=== PATIENT | male | born 1960 | race Caucasian/White ===

== ENCOUNTER 2016-12-15 02:13 | Inpatient (IN) | payer BC ==
[2016-12-15] VITALS (16 sets, daily range): BP systolic 102–173; BP diastolic 69–107; PULSE 83–112; TEMP 36.7–37; O2SAT 94–99; Ht 180.3 cm; Wt 102.8 kg
[~2016-12-15] VITALS: Ht 180.3 cm; Wt 102.8 kg
[~2016-12-15 02:13] MED LIST: ALBUAER INH; AMPH30TA2 PO; GABA-113 PO; LISI20TA3 PO; MULTTAB58 PO
[2016-12-15] MEDS ORDERED: MoRPHine SULFATE 10 MG/ML CARP/VIAL IV STA (02:34)
[2016-12-15] MEDS ORDERED: ONDANSETRON INJ 2 MG/ML 2 ML VIAL IV STA (02:34)
[2016-12-15] MEDS ORDERED: ALUMINUM/MAGNESIUM SUSP 30 ML UDC ONE (02:40)
[2016-12-15] MEDS ORDERED: LIDOCAINE HCL 2% VISC SOLN 20 ML UDC ONE (02:40)
[2016-12-15] MEDS ORDERED: SODIUM CHLORIDE 0.9% 1000ML 1,000 ML IV ONE ×2 (02:45→04:45)
[2016-12-15] MEDS ORDERED: GI COCKTAIL PO ONE (02:45)
[2016-12-15 02:47] LABS: BASO % 0.3 %; BASO ABS # 0.04 K/uL (0-0.2); COMPLETE YES; EOS % 1.9 %; HEMATOCRIT 44.1 % (42-52); IG% 0.5 %; LYMPH % 10.2 %; LYMPH ABS # 1.31 K/uL (1.2-3.4); MEAN CELL VOLUME 85.8 fL (80-100); MEAN CORPUSCULAR HGB CONC 34.9 g/dl (32-36); MEAN PLATELET VOLUME 8.8 fL (7.4-10.4); MONO % 7.1 %; PLATELET COUNT 263 K/uL (130-400); RED BLOOD COUNT 5.14 M/uL (4.7-6.1); WHITE BLOOD COUNT 12.89 K/uL (4.8-10.8)
[2016-12-15 02:56] LABS: ISTAT CREATININE 1.1 mg/dl (0.6-1.3); ISTAT HEMOGLOBIN 15.6 g/dl (14.0-18.0); ISTAT IONIZED CALCIUM 1.14 mmol/l (1.12-1.32)
[2016-12-15 03:07] LABS: INR 0.9 (0.9-1.1); PROTHROMBIN TIME (PATIENT) 9.6 SECONDS (9.0-12.0)
[2016-12-15 03:17] LABS: BUN/CREATININE RATIO 21.2 (10-20); CALCIUM 9.4 mg/dl (8.5-10.1); CREATININE 1.1 mg/dl (0.60-1.40); MAGNESIUM 2.2 mg/dl (1.8-2.4); POTASSIUM 4.5 mmol/L (3.5-5.1)
[2016-12-15] MEDS ORDERED: HYDROmorphone INJ 1 MG/ML SYR IV STA ×2 (03:25→04:36)
[2016-12-15 03:30] LABS: ALB/GLOB RATIO 1.3 (0.9-2); THYROID STIMULATING HORMONE 2.63 uIu/ml (0.300-4.500)
[2016-12-15] MEDS ORDERED: CEFOXITIN 2000MG/60 ML D5W IV STA (04:29)
[2016-12-15] MEDS ORDERED: PANTOprazole INJ 40 MG in SYRINGE 0 ML IV ONE (04:30)
[2016-12-15] MEDS ORDERED: FENTANYL CITRATE INJ 50 MCG/1 ML 2 ML VIAL ONE ×3 (05:15→06:59)
[2016-12-15] MEDS ORDERED: MIDAZOLAM HCL 1 MG/ML 2ML VIAL ONE (05:15)
--- NOTE | 2016-12-15 05:18 | History and Physical ---
History & Physical Date Dec 15, 2016. Chief Complaint abdominal pain History of Present Illness The patient is a 56 year old male with complaints of severe abdominal pain which began at midnight. He came to ED for evaluation. He has had some vomiting but no vomiting. The pain is epigastric without radiation. He denies fever, chills or dysuria. A CT scan shows free air and presumably a perforated duodenal ulcer. He has never taken antacids. Past Medical/Surgical History Medical Problems: (1) Asthma (2) Bronchitis (3) Dislocation of shoulder, right, closed (4) HTN (hypertension) (5) Pneumonia Surgical Problems: (1) H/O removal of cyst Additional History Hepatic Disease: No Endocrine Disorder: No Kidney Disease: No Hypertension: Yes Heart Disease: No Bleeding Tendencies: No Infectious Diseases: No Allergies Coded Allergies: Iodine (Verified Allergy, Unknown, HIVES, 12/15/16) Penicillins (Verified Allergy, Unknown, RASH, 12/15/16) Codeine (Verified Adverse Reaction, Unknown, NAUSEA, 12/15/16) Uncoded Allergies: CONTRASTMEDIA (Allergy, Unknown, 05/10/09) OPIATEAGONISTS (Adverse Reaction, Unknown, NAUSEA, 05/10/09) Home Medications Scheduled Multiple Vitamin (Multivitamin), 1 TAB PO QAM Physical Examination Skin: warm/dry, no rash Eyes: normal inspection, EOMI, sclerae normal ENT: normal ENT inspection Head: normocephalic, atraumatic Neck: supple, no adenopathy, trachea midline Respiratory/Chest: lungs clear, normal breath sounds, no respiratory distress Cardiovascular: regular rate, rhythm, no murmur Abdomen / GI: normal bowel sounds, + pertinent finding (epigastric tenderness, guarding and rebound, no hernias) Back: normal inspection Extremities: normal inspection Genitourinary - Male: normal male genitalia Neurologic/Psych: no motor/sensory deficits, alert, normal reflexes, oriented x 3 Diagnosis Perforated viscus likely duodenal ulcer ASA Classification: ASA Class II Plan of Treatment -IV medoxin -IVF -to OR for exploration
[2016-12-15] MEDS ORDERED: PROMETHAZINE HCL INJ 12.5 MG in SODIUM CHLORIDE 0.9% 50ML 50 ML IV PRN (05:30)
[2016-12-15] MEDS ORDERED: MoRPHine SULFATE 2 MG/ML CARP IV PRN (05:30)
[2016-12-15] MEDS ORDERED: ONDANSETRON INJ 2 MG/ML 2 ML VIAL IV PRN (05:30)
[2016-12-15] MEDS ORDERED: ACETAMINOPHEN IV 100 ML IV PRN (05:30)
[2016-12-15] MEDS ORDERED: ATROPINE SULFATE 0.1 MG/ML 5ML SYR IV PRN (05:30)
[2016-12-15] MEDS ORDERED: LABETALOL HCL IV 5 MG/ML 20ML IV PRN (05:30)
--- NOTE | 2016-12-15 05:55 | EMERGENCY ROOM VISIT NOTE ---
History First contact with patient: 02:26 Chief Complaint: ABDOMINAL PAIN Stated Complaint: SEVERE INDIGESTION PAIN,NO RELIEF AT 2 HRS Nursing Triage Summary: c/o epigastric pain/burning starting around 0030 that woke pt from sleep. History of Present Illness The patient is a 56 year old male who presents to the Emergency Room with complaints of severe acute onset epigastric abdominal pain that he rates a 10/ 10. He describes it as a severe burning sensation seated just below his ribs. The pain is without radiation. He is nauseated without vomiting. The patient was doing well all day and was eating and drinking as normal. He does not have chest pain, chest tightness, shortness of breath, back pain, or lower abdominal pain. He does not have a history of pancreatitis or gallbladder disease. No No recent illness. Review of Systems More than 10 systems were reviewed and otherwise negative with the exception of history of present illness. Past Medical/Surgical History Medical Problems: (1) Asthma (2) Bronchitis (3) Dislocation of shoulder, right, closed (4) HTN (hypertension) (5) Pneumonia Surgical Problems: (1) H/O removal of cyst Family History Cancer Social History Smoking Status: Never Smoker Alcohol Use: none Marital Status: Housing Status: lives with family Occupation Status: employed Current/Historical Medications Scheduled Multiple Vitamin (Multivitamin), 1 TAB PO QAM Allergies Coded Allergies: Iodine (Verified Allergy, Unknown, HIVES, 12/15/16) Penicillins (Verified Allergy, Unknown, RASH, 12/15/16) Codeine (Verified Adverse Reaction, Unknown, NAUSEA, 12/15/16) Uncoded Allergies: CONTRASTMEDIA (Allergy, Unknown, 05/10/09) OPIATEAGONISTS (Adverse Reaction, Unknown, NAUSEA, 05/10/09) Physical Exam Vital Signs Date Time Temp Pulse Resp B/P (MAP) Pulse Ox O2 Delivery O2 Flow Rate FiO2 12/15/16 05:03 36.7 89 16 153/97 95 Room Air 12/15/16 03:38 88 24 159/108 100 Room Air 12/15/16 02:29 83 12/15/16 02:16 36.4 87 26 165/100 96 Room Air Pain Rating (0-10): 4.0 Physical Exam VITALS: Vitals are noted on the nurse's note and reviewed by myself. Vital signs stable. GENERAL: Well-developed, well-nourished, white male who appears in severe discomfort. He is holding his epigastric region with his hands. NECK: Supple without nuchal rigidity. No lymphadenopathy. No thyromegaly. Cervical spine is nontender. HEART: Regular rate and rhythm without murmurs gallops or rubs. LUNGS: Clear to auscultation bilaterally without wheezes, rales or rhonchi. No retractions or accessory muscle use. ABDOMEN: Positive normal bowel sounds x 4. Soft with exquisite tenderness in the epigastrium. No CVA tenderness. No lower abdominal tenderness. MUSCULOSKELETAL: No muscle atrophy, erythema, or edema noted. Full range of motion without joint tenderness in all extremities. Medical Decision & Procedures ER Provider Diagnostic Interpretation: Preliminary Findings Only See Final Report For Complete Findings CT ABDOMEN & PELVIS: Moderate amount of free air seen within the upper abdomen suggesting perforated viscous, likely duodenal ulcer (2-35). Liver, gallbladder, spleen, pancreas and adrenal glands are unremarkable. Kidneys, ureters and urinary bladder are unremarkable. Noninflamed colonic diverticulosis. Appendix is unremarkable. Fat-containing umbilical hernia. No acute osseous abnormality. Laboratory Results 12/15/16 02:35 Red Blood Count 5.14, Mean Corpuscular Volume 85.8, Mean Corpuscular Hemoglobin 30.0, Mean Corpuscular Hemoglobin Concent 34.9, Mean Platelet Volume 8.8, Neutrophils (%) (Auto) 80.0, Lymphocytes (%) (Auto) 10.2, Monocytes (%) (Auto) 7.1, Eosinophils (%) (Auto) 1.9, Basophils (%) (Auto) 0.3, Neutrophils # (Auto) 10.33, Lymphocytes # (Auto) 1.31, Monocytes # (Auto) 0.91, Eosinophils # (Auto) 0.24, Basophils # (Auto) 0.04 12/15/16 02:35 Test 12/15/16 02:35 12/15/16 02:41 12/15/16 02:43 White Blood Count 12.89 K/uL (4.8-10.8) Red Blood Count 5.14 M/uL (4.7-6.1) Hemoglobin 15.4 g/dL (14.0-18.0) Hematocrit 44.1 % (42-52) Mean Corpuscular Volume 85.8 fL (80-100) Mean Corpuscular Hemoglobin 30.0 pg (25-34) Mean Corpuscular Hemoglobin Concent 34.9 g/dl (32-36) Platelet Count 263 K/uL (130-400) Mean Platelet Volume 8.8 fL (7.4-10.4) Neutrophils (%) (Auto) 80.0 % Lymphocytes (%) (Auto) 10.2 % Monocytes (%) (Auto) 7.1 % Eosinophils (%) (Auto) 1.9 % Basophils (%) (Auto) 0.3 % Neutrophils # (Auto) 10.33 K/uL (1.4-6.5) Lymphocytes # (Auto) 1.31 K/uL (1.2-3.4) Monocytes # (Auto) 0.91 K/uL (0.11-0.59) Eosinophils # (Auto) 0.24 K/uL (0-0.5) Basophils # (Auto) 0.04 K/uL (0-0.2) RDW Standard Deviation 41.5 fL (36.4-46.3) RDW Coefficient of Variation 13.1 % (11.5-14.5) Immature Granulocyte % (Auto) 0.5 % Immature Granulocyte # (Auto) 0.06 K/uL (0.00-0.02) Prothrombin Time 9.6 SECONDS (9.0-12.0) Prothromb Time International Ratio 0.9 (0.9-1.1) Activated Partial Thromboplast Time 26.9 SECONDS (21.0-31.0) Partial Thromboplastin Ratio 1.0 Est Creatinine Clear Calc Drug Dose 90.4 ml/min Estimated GFR () 85.9 Estimated GFR (Non- 74.1 BUN/Creatinine Ratio 21.2 (10-20) Calcium Level 9.4 mg/dl (8.5-10.1) Magnesium Level 2.2 mg/dl (1.8-2.4) Total Bilirubin 0.3 mg/dl (0.2-1) Aspartate Amino Transf (AST/SGOT) 20 U/L (15-37) Alanine Aminotransferase (ALT/SGPT) 30 U/L (12-78) Alkaline Phosphatase 101 U/L (45-117) Total Creatine Kinase 103 U/L (39-308) Creatine Kinase MB 2.1 ng/ml (0.5-3.6) Creatine Kinase MB Ratio 2.0 (0-3.0) Total Protein 7.4 gm/dl (6.4-8.2) Albumin 4.2 gm/dl (3.4-5.0) Globulin 3.2 gm/dl (2.5-4.0) Albumin/Globulin Ratio 1.3 (0.9-2) Lipase 290 U/L (73-393) Thyroid Stimulating Hormone (TSH) 2.630 uIu/ml (0.300-4.500) Chemistry Specimen Hemolysis Bedside Troponin I < 0.030 ng/ml (0-0.045) Bedside Hemoglobin 15.6 g/dl (14.0-18.0) Bedside Hematocrit 46 % (42-52) Bedside Sodium 141 mEq/L (135-144) Bedside Potassium 4.2 mEq/L (3.3-5.0) Bedside Chloride 101 mEq/L (101-112) Bedside Total CO2 30 mEq/l (24-31) Anion Gap 15.0 mmol/L (16-25) Bedside Blood Urea Nitrogen 25 mg/dl (7-18) Bedside Creatinine 1.1 mg/dl (0.6-1.3) Bedside Glucose (other) 137 mg/dl (70-99) Bedside Ionized Calcium (Althea) 1.14 mmol/l (1.12-1.32) Medications Administered Medications (Trade) Dose Ordered Sig/Rod Route Start Time Stop Time Status Last Admin Dose Admin Morphine Sulfate (MoRPHine SULFATE INJ) 6 mg NOW STAT IV 12/15/16 02:34 12/15/16 02:37 DC 12/15/16 02:47 6 MG Sodium Chloride 1,000 ml @ 999 mls/hr Q1H1M ONCE IV 12/15/16 02:45 12/15/16 03:45 DC 12/15/16 02:45 999 MLS/HR Ondansetron HCl (Zofran Inj) 4 mg NOW STAT IV 12/15/16 02:34 12/15/16 02:37 DC 12/15/16 02:45 4 MG Al Hydroxide/Mg Hydroxide (Maalox Susp) 30 ml STK-MED ONCE .ROUTE 12/15/16 02:40 12/15/16 02:41 DC 12/15/16 02:43 30 ML Lidocaine HCl (Viscous Lidocaine 2% Soln) 20 ml STK-MED ONCE .ROUTE 12/15/16 02:40 12/15/16 02:41 DC 12/15/16 02:43 20 ML Hydromorphone HCl (Dilaudid Inj) 1 mg NOW STAT IV 12/15/16 03:25 12/15/16 03:26 DC 12/15/16 03:35 1 MG Pantoprazole Sodium 40 mg/ Syringe 10 ml @ 5 mls/min NOW ONCE IV 12/15/16 04:30 12/15/16 04:31 DC 12/15/16 04:43 5 MLS/MIN Cefoxitin Sodium (Mefoxin 2000mg/ 60 ml D5W) 2,000 mg NOW STAT IV 12/15/16 04:29 12/15/16 04:31 DC 12/15/16 04:42 2,000 MG Hydromorphone HCl (Dilaudid Inj) 1 mg NOW STAT IV 12/15/16 04:36 12/15/16 04:37 DC 12/15/16 04:55 1 MG Sodium Chloride 1,000 ml @ 999 mls/hr Q1H1M ONCE IV 12/15/16 04:45 12/15/16 05:45 DC 12/15/16 04:45 999 MLS/HR ED Course Physical exam and history were performed. Nursing notes, EMR, and Medication List were personally reviewed. Patient appears to have severe epigastric abdominal pain. IV access was established and labs were obtained. My initial concern for the patient was for possible dissection as he was with significant discomfort on presentation. Evidently the patient does have a contrast allergy, and I elected to perform a stat portable chest x-ray and abdomen and pelvis CT without contrast. The patient did require morphine and subsequent doses of Dilaudid to achieve any level of reasonable comfort. The patient's blood work is as above and was reviewed. He does have an elevated white blood cell count of around 13,000. He does not have a significant anemia or gross electrolyte imbalance. Lipase and transaminases were not diagnostic. The patient CT scan was very concerning on initial review by myself and my attending physician, Dr. Hutchins. The patient appears to have free air around the duodenum, and this was confirmed by [employer] reading. Clinically this does correlate with the patient's discomfort. The case was discussed with the on-call surgeon, Dr. Olivarez, who evaluated the patient here in the ER and will take him to the OR. The patient was given IV Protonix and Mefoxin. Please see Dr. Olivarez's dictation for further patient course, plan, and disposition. The chart was completed utilizing [employer] Speech Voice Recognition Software. Grammatical errors, random word insertions, pronoun errors, and incomplete sentences are an occasional consequence of this system due to software limitations, ambient noise, and hardware issues. Any formal questions or concerns about the content, text, or information contained within the body of this dictation should be directly addressed to the provider for clarification. . Medical Decision Differential diagnosis: Etiologies such as appendicitis, diverticulitis, PUD, biliary pathology, UTI, pancreatitis, obstruction, mesenteric ischemia, aortic pathology, infections, inflammatory bowel disease, renal colic, as well as others were entertained. Impression Primary Impression: Duodenal perforation Departure Information Referrals Erik Tracey III, M.D. (PCP) Patient Instructions My [facility]
--- NOTE | 2016-12-15 06:08 | EMERGENCY ROOM VISIT NOTE ---
ED Visit Note First contact with patient: 02:26 I have personally evaluated and examined this patient. I agree with assessment and plan of Rowdy Dior PA-C. Joselyn 56 yr old male arrives with several hours acute onset epigastric pain. Peritonitis on examination and CT with free air, highly suspicious for duodenal perforation. Pain controlled with IV narcotics, empiric abx and patient taken to OR emergently by Surgery.
[2016-12-15] MEDS ORDERED: CISATRACURIUM BESYLATE IV SOLN 2 MG/ML 10 ML VIAL ONE (06:24)
[2016-12-15] MEDS ORDERED: PROPOFOL IV EMULSION 10 MG/ML 20 ML VIAL IV ONE (06:24)
[2016-12-15] MEDS ORDERED: LIDOCAINE HCL 2% 2 ML VIAL (20MG/ML) ONE (06:24)
[2016-12-15] MEDS ORDERED: SUCCINYLCHOLINE 100MG/5ML SYR IV ONE (06:24)
[2016-12-15] MEDS ORDERED: EpHEDrine SULFATE INJ 50 MG/ML AMP ONE (06:25)
--- NOTE | 2016-12-15 06:44 | DIAGNOSTIC IMAGING REPORT ---
CHEST ONE VIEW PORTABLE CLINICAL HISTORY: Epigastric abd pain pain COMPARISON STUDY: No previous studies for comparison. FINDINGS: The bones soft tissues and hemidiaphragms are normal. The cardiomediastinal silhouette is normal. The lungs are clear. The pulmonary vasculature is normal. IMPRESSION: Negative chest. The above report was generated using voice recognition software. It may contain grammatical, syntax or spelling errors. Electronically signed by: Doug Massey M.D. 12/15/2016 6:43 AM Dictated Date/Time: 12/15/2016 6:41 AM
[2016-12-15] MEDS ORDERED: MoRPHine SULFATE 4 MG/ML 1 ML CARP\\VIAL IV PRN (06:45)
--- NOTE | 2016-12-15 06:48 | DIAGNOSTIC IMAGING REPORT ---
ABD/PELVIS NO IV OR ORAL CONT CT DOSE: 724.69 mGy.cm HISTORY: Pain Severe epigastric abd pain TECHNIQUE: Multiaxial CT images of the abdomen and pelvis were performed without contrast. A dose lowering technique was utilized adhering to the principles of ALARA. COMPARISON STUDY: None. FINDINGS: Lung bases are clear. Free intraperitoneal air. Distribution suggests a potential perforated viscus within the upper gastrointestinal tract and or duodenal sweep. Slight thickening of the right coronal fascia. Liver spleen and pancreas are uniform. Kidneys negative for calcification or hydronephrosis. Bowel pattern is nonobstructive. Evaluation of pelvis is chronic sigmoid diverticulosis. There is no evidence for acute diverticulitis. Bladder is midline. IMPRESSION: 1. Free intra-abdominal air. 2. This potentially represents a perforated viscus related to the duodenum or duodenal sweep/stomach. 3. Otherwise negative study. 4. Chronic sigmoid diverticulosis. The above report was generated using voice recognition software. It may contain grammatical, syntax or spelling errors. Electronically signed by: Doug Massey M.D. 12/15/2016 6:46 AM Dictated Date/Time: 12/15/2016 6:45 AM
[2016-12-15] MEDS ORDERED: DEXAMETHASONE SOD INJ 4 MG/ML VIAL ONE (07:02)
[2016-12-15] MEDS ORDERED: ONDANSETRON INJ 2 MG/ML 2 ML VIAL ONE (07:02)
--- NOTE | 2016-12-15 07:39 | [facility] Post Operative Brief Note ---
Immediate Operative Summary Operative Date Dec 15, 2016. Pre-Operative Diagnosis Free Air, Perforated Viscus, Duodenal Ulcer Post-Operative Diagnosis Free Air, Perforated Viscus, Duodenal perforated diverrticulum Procedure(s) Performed Exploratory Laparotomy with resection perforated duodenal diverticulum Surgeon Dr. Olivarez Public Affairs Officer Surgeon(s) none Estimated Blood Loss 75CC Findings anterior superior perforated duodenal diverticulum Specimens A: Duodenal Diverticulum Drains duodenal resection site Anesthesia GETA Complication(s) None Disposition Recovery Room / PACU
[2016-12-15] MEDS ORDERED: BACITRACIN 50000 UNIT VIAL ONE (07:46)
[2016-12-15] MEDS: HYDROmorphone INJ 2 MG/ML SYR/VIAL IV PRN ×8 (07:56→09:06)
--- NOTE | 2016-12-15 08:11 | OPERATIVE REPORT ---
DATE OF OPERATION: 12/15/2016 PREOPERATIVE DIAGNOSIS: Perforated viscus, likely duodenal ulcer. POSTOPERATIVE DIAGNOSIS: Perforated anterior superior duodenal diverticulum. PROCEDURE PERFORMED: Exploratory lap with resection and drainage of perforated duodenal diverticulum. SURGEON: Dr. Rigoberto Olivarez. ANIMAL HERDER: None. ANESTHESIA: General endotracheal. ESTIMATED BLOOD LOSS: 75 mL. DRAINS: Left near the repair site. COMPLICATIONS: None. SPECIMENS: Duodenal diverticulum sent to pathology. INDICATION FOR PROCEDURE: This is a 56-year-old male who came in last evening with severe epigastric abdominal pain, underwent a workup which CT scan showed free air and likely some sort of duodenal process causing his perforation. I talked to him in detail about this and recommended exploratory laparotomy. We will plan on doing this emergently. He understands the risks which were explained to him in detail. DESCRIPTION OF PROCEDURE: The patient was taken to the OR and underwent excellent general endotracheal anesthesia. His abdomen was prepped and draped in normal sterile fashion. A Wheat and NG tube were placed intraoperatively. An upper midline incision was made. Dissection was taken down to enter his peritoneal cavity. A Bookwalter retractor was obtained to obtain exposure. There appeared to be a duodenal diverticulum which had some sort of a process which had covered but you could see greenish drainage around it. The gastrocolic ligament was taken down to check the lesser sac and the posterior stomach which was normal and the anterior stomach was normal. The colon was checked with no abnormalities. He had some diverticular disease but no current diverticulitis. Once this was ensured, the duodenum was then Kocherized to mobilize the anterior superior duodenal diverticulum that had a small, about a cm base to it. Once this was dissected free with meticulous sharp and blunt dissection a JENNIFER stapler was used to transect the duodenum. You could see where the hole was in the anterior portion of the duodenum and on the duodenal diverticulum. Once this was done interrupted 3-0 silk sutures were used to reinforce the closure. A tunnel of omentum was then created with a Harmonic scalpel and placed over the top of this repair and secured with the tails of the repair. A drain was placed near the repair and brought out the anterior abdominal wall. This was secured. All the lap pads were removed. There was about 75 mL of blood loss. The fascia was closed with a running PDS suture. Skin was closed with princess. NG tube was checked and was in good position. The patient tolerated the procedure well without any complications, sent to post-recovery for a period of observation and patient to be sent to floor for his care. I attest to the content of the Intraoperative Record and any orders documented therein. Any exception s are noted below.
[2016-12-15] MEDS ORDERED: NURSING VERBAL MED ORDER ONE ×4 (08:35→19:30)
[2016-12-15] MEDS ORDERED: LABETALOL HCL IV 5 MG/ML 20ML IV ONE (08:37)
[2016-12-15] MEDS ORDERED: HydrALAZINE HCL 20 MG/ML VIAL ONE (08:52)
[2016-12-15] MEDS ORDERED: LORAZEPAM 2 MG/ML 1 ML VIAL ONE (09:26)
--- NOTE | 2016-12-15 10:09 | Anesthesiology Progress Note ---
Anesthesia Post Op Note Date & Time Dec 15, 2016 at 10:09 Vital Signs Pain Intensity: 5 Vital Signs Past 12 Hours Date Time Temp Pulse Resp B/P (MAP) Pulse Ox O2 Delivery O2 Flow Rate FiO2 12/15/16 09:45 90 14 140/92 94 Nasal Cannula 3 12/15/16 09:30 81 12 164/89 93 Nasal Cannula 3 12/15/16 09:15 36.4 92 20 150/98 92 Nasal Cannula 3 12/15/16 09:05 92 20 150/98 92 Nasal Cannula 3 12/15/16 08:55 89 18 137/96 94 Nasal Cannula 3 12/15/16 08:45 81 13 159/103 95 Nasal Cannula 3 12/15/16 08:35 103 14 162/116 96 Nasal Cannula 3 12/15/16 08:25 87 12 148/112 97 Nasal Cannula 3 12/15/16 08:15 90 18 177/114 95 Nasal Cannula 3 12/15/16 08:05 78 17 143/114 100 Oxymask 10 12/15/16 07:55 88 15 170/115 98 Oxymask 10 12/15/16 07:46 36.1 77 18 148/81 95 Oxymask 10 12/15/16 05:03 36.7 89 16 153/97 95 Room Air 12/15/16 03:38 88 24 159/108 100 Room Air 12/15/16 02:29 83 12/15/16 02:16 36.4 87 26 165/100 96 Room Air Notes Mental Status: alert / awake / arousable, participated in evaluation Pt Amnestic to Procedure: Yes Nausea / Vomiting: adequately controlled Pain: adequately controlled Airway Patency, RR, SpO2: stable & adequate BP & HR: stable & adequate Hydration State: stable & adequate Anesthetic Complications: no major complications apparent
[2016-12-15] MEDS ORDERED: SODIUM CHLORIDE 0.9% 1000ML 1,000 ML IV SCH (10:14)
[2016-12-15] MEDS ORDERED: MoRPHine SULFATE 1 MG/ML 50 ML PCA CASS IV PRN (10:15)
[2016-12-15] MEDS ORDERED: NALOXONE HCL 0.4 MG/1 ML VIAL/CARP IV PRN ×2 (10:15→18:00)
[2016-12-15] MEDS: LACTATED RINGER'S 1000ML 1,000 ML IV SCH ×3 (10:58→18:59)
[2016-12-15] MEDS: CIPROFLOXACIN / D5W 400 MG in PREMIXED IN D5W 200 ML IV SCH ×2 (11:54→23:30)
[2016-12-15] MEDS: METRONIDAZOLE / NSS 500 MG in PREMIXED NSS 100 ML IV SCH ×2 (13:16→20:29)
[2016-12-15 14:27] LABS: URINE APPEARANCE CLEAR (CLEAR); URINE BILIRUBIN NEG (NEG); URINE COLOR YELLOW; URINE NITRITE NEG (NEG); URINE PH 5.5 (4.5-7.5); URINE SPECIFIC GRAVITY 1.032 (1.000-1.030); UROBILINOGEN NEG (NEG); ZZUR CULT IF INDIC CLEAN CATCH NO
[2016-12-15 14:38] LABS: MANUAL MICROSCOPIC REQUIRED? NO; REVIEW REQ? NO
[2016-12-15] MEDS: SODIUM CHLORIDE 0.9% 1000ML 1,000 ML IV SCH (17:47)
[2016-12-15] MEDS: ONDANSETRON INJ 2 MG/ML 2 ML VIAL IV PRN ×2 (18:55→19:00)
[2016-12-15] MEDS: HYDROmorphone HCL 0.5MG/ML 50 ML CASSETTE IV PRN ×2 (19:03→23:20)
[2016-12-15] MEDS ORDERED: LORAZEPAM INJ 0.5 MG in SYRINGE 0.75 ML IV ONE (19:45)
[2016-12-15] MEDS ORDERED: HYDROmorphone HCL 0.5MG/ML 50 ML CASSETTE IV ONE (20:00)
[2016-12-15] MEDS: PANTOprazole INJ 40 MG in SYRINGE 0 ML IV SCH (20:29)
[2016-12-15] MEDS ORDERED: CARISOPRODOL 350 MG TAB PO ONE (20:30)
[2016-12-16] MEDS: LACTATED RINGER'S 1000ML 1,000 ML IV SCH ×4 (01:54→23:39)
[2016-12-16 03:18] VITALS: BP 121/83; PULSE 101; TEMP 36.5; O2SAT 98
[2016-12-16] MEDS: METRONIDAZOLE / NSS 500 MG in PREMIXED NSS 100 ML IV SCH ×3 (04:14→20:41)
[2016-12-16 07:11] VITALS: BP 128/87; PULSE 91; TEMP 36.8; O2SAT 100
[2016-12-16 07:14] LABS: BASO % 0.1 %; BASO ABS # 0.01 K/uL (0-0.2); COMPLETE YES; HEMATOCRIT 38.1 % (42-52); IG% 0.4 %; LYMPH % 8.3 %; LYMPH ABS # 1.22 K/uL (1.2-3.4); MEAN CORPUSCULAR HEMOGLOBIN 29.6 pg (25-34); MEAN CORPUSCULAR HGB CONC 33.6 g/dl (32-36); MEAN PLATELET VOLUME 9.1 fL (7.4-10.4); MONO % 11.5 %; NEUT % 79.7 %; PLATELET COUNT 259 K/uL (130-400); RED BLOOD COUNT 4.33 M/uL (4.7-6.1); WHITE BLOOD COUNT 14.73 K/uL (4.8-10.8)
[2016-12-16] MEDS: HYDROmorphone HCL 0.5MG/ML 50 ML CASSETTE IV PRN ×3 (07:16→23:20)
--- NOTE | 2016-12-16 07:24 | Surgery Progress Note ---
Surgery Progress Note Date of Service Dec 16, 2016. Subjective Post OP Day: 1 + feeling well (OK), + complaints (pain), + flatus, + diet (npo), No bowel movement Objective Vital Signs: Date Time Temp Pulse Resp B/P (MAP) Pulse Ox O2 Delivery O2 Flow Rate FiO2 12/16/16 07:11 36.8 91 18 128/87 (101) 100 Nasal Cannula 4.0 12/16/16 03:18 36.5 101 16 121/83 (96) 98 Nasal Cannula 4.0 12/15/16 23:30 99 Nasal Cannula 4.0 12/15/16 22:47 36.7 109 16 110/78 (89) 98 Nasal Cannula 4.0 12/15/16 20:46 114/84 (94) 12/15/16 19:59 102/69 (80) 12/15/16 19:40 36.8 112 18 105/73 (84) 94 Nasal Cannula 12/15/16 16:24 158/102 (120) 12/15/16 15:37 166/101 (122) 12/15/16 15:15 Nasal Cannula 3.0 12/15/16 15:09 159/102 (121) 12/15/16 14:53 36.7 95 18 173/107 (129) 94 Nasal Cannula 12/15/16 13:15 94 18 148/95 (112) 94 12/15/16 12:15 105 18 139/89 (106) 95 12/15/16 11:16 96 15 124/85 (98) 94 12/15/16 10:50 37.0 83 14 142/96 (111) 94 Nasal Cannula 2.0 12/15/16 10:50 94 Nasal Cannula 2.0 12/15/16 10:45 90 15 149/91 (110) 96 12/15/16 10:44 94 Nasal Cannula 2.0 12/15/16 10:29 37.0 83 14 142/96 94 Nasal Cannula 2.0 12/15/16 09:45 90 14 140/92 94 Nasal Cannula 3 12/15/16 09:30 81 12 164/89 93 Nasal Cannula 3 12/15/16 09:15 36.4 92 20 150/98 92 Nasal Cannula 3 12/15/16 09:05 92 20 150/98 92 Nasal Cannula 3 12/15/16 08:55 89 18 137/96 94 Nasal Cannula 3 12/15/16 08:45 81 13 159/103 95 Nasal Cannula 3 12/15/16 08:35 103 14 162/116 96 Nasal Cannula 3 12/15/16 08:25 87 12 148/112 97 Nasal Cannula 3 12/15/16 08:15 90 18 177/114 95 Nasal Cannula 3 12/15/16 08:05 78 17 143/114 100 Oxymask 10 12/15/16 07:55 88 15 170/115 98 Oxymask 10 12/15/16 07:46 36.1 77 18 148/81 95 Oxymask 10 Physical Exam: Nikolay drainage (serosanguinous) General Appearance: WD/WN, no apparent distress Head: normocephalic, atraumatic Neck: supple Respiratory/Chest: lungs clear Cardiovascular: regular rate, rhythm Abdomen: normal bowel sounds, non distended, soft, + tenderness Incision(s): intact (dressing) Extremities: non-tender, no pedal edema Laboratory Results: Results Past 24 Hours Test 12/15/16 13:30 12/16/16 06:05 Range/Units Urine Color YELLOW Urine Appearance CLEAR CLEAR Urine pH 5.5 4.5-7.5 Urine Specific Center 1.032 1.000-1.030 Urine Protein TRACE NEG Urine Glucose (UA) 2+ NEG Urine Ketones NEG NEG Urine Occult Blood 2+ NEG Urine Nitrite NEG NEG Urine Bilirubin NEG NEG Urine Urobilinogen NEG NEG Urine Leukocyte Esterase NEG NEG Urine WBC (Auto) 5-10 0-5 /hpf Urine RBC (Auto) >30 0-4 /hpf Urine Hyaline Casts (Auto) 1-5 0-5 /lpf Urine Epithelial Cells (Auto) 10-20 0-5 /lpf Urine Bacteria (Auto) NEG NEG White Blood Count 14.73 4.8-10.8 K/uL Red Blood Count 4.33 4.7-6.1 M/uL Hemoglobin 12.8 14.0-18.0 g/dL Hematocrit 38.1 42-52 % Mean Corpuscular Volume 88.0 80-100 fL Mean Corpuscular Hemoglobin 29.6 25-34 pg Mean Corpuscular Hemoglobin Concent 33.6 32-36 g/dl Platelet Count 259 130-400 K/uL Mean Platelet Volume 9.1 7.4-10.4 fL Neutrophils (%) (Auto) 79.7 % Lymphocytes (%) (Auto) 8.3 % Monocytes (%) (Auto) 11.5 % Eosinophils (%) (Auto) 0.0 % Basophils (%) (Auto) 0.1 % Neutrophils # (Auto) 11.74 1.4-6.5 K/uL Lymphocytes # (Auto) 1.22 1.2-3.4 K/uL Monocytes # (Auto) 1.70 0.11-0.59 K/uL Eosinophils # (Auto) 0.00 0-0.5 K/uL Basophils # (Auto) 0.01 0-0.2 K/uL RDW Standard Deviation 45.1 36.4-46.3 fL RDW Coefficient of Variation 13.9 11.5-14.5 % Immature Granulocyte % (Auto) 0.4 % Immature Granulocyte # (Auto) 0.06 0.00-0.02 K/uL Assessment & Plan s/p ex lap with resection ruptured duodenal diverticulum -OOB -sips -con't ngt; possible study tomorrow -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
[2016-12-16] MEDS ORDERED: NURSING VERBAL MED ORDER ONE ×4 (07:30→17:30)
[2016-12-16 07:42] LABS: BUN/CREATININE RATIO 15.8 (10-20); CALCIUM 8.3 mg/dl (8.5-10.1); CREATININE 1.7 mg/dl (0.60-1.40); POTASSIUM 4.6 mmol/L (3.5-5.1)
[2016-12-16] MEDS ORDERED: LACTATED RINGER'S 1000ML 1,000 ML IV SCH (07:45)
[2016-12-16] MEDS ORDERED: COUGH DROP (SUGAR FREE) LOZ 24 LOZ/1 BOX PO PRN (08:00)
[2016-12-16] MEDS: PANTOprazole INJ 40 MG in SYRINGE 0 ML IV SCH ×2 (08:43→20:41)
[2016-12-16] MEDS: FLUTICASONE HFA 110MCG INHALER INH SCH ×2 (08:44→20:41)
[2016-12-16 11:14] VITALS: BP 131/89; PULSE 94; TEMP 36.7; O2SAT 97
[2016-12-16] MEDS: CIPROFLOXACIN / D5W 400 MG in PREMIXED IN D5W 200 ML IV SCH ×2 (12:22→23:39)
[2016-12-16] MEDS ORDERED: SODIUM CHLORIDE 0.9% 1000ML 500 ML IV ONE (15:00)
[2016-12-16 15:36] VITALS: BP 120/87; PULSE 107; TEMP 36.9; O2SAT 95
[2016-12-16] MEDS: SODIUM CHLORIDE 0.9% 1000ML 1,000 ML IV SCH (17:16)
[2016-12-16] MEDS: LORAZEPAM INJ 0.5 MG in SYRINGE 0.75 ML IV PRN (19:15)
[2016-12-16 19:27] VITALS: BP 152/92; PULSE 111; TEMP 36.8; O2SAT 98
[2016-12-16 23:00] VITALS: BP 140/81; PULSE 107; TEMP 37.3; O2SAT 95
[2016-12-17] VITALS (8 sets, daily range): BP systolic 142–154; BP diastolic 88–103; PULSE 95–106; TEMP 36.9–37.1; O2SAT 96–100
[2016-12-17] MEDS: LORAZEPAM INJ 0.5 MG in SYRINGE 0.75 ML IV PRN ×2 (02:12→21:13)
[2016-12-17] MEDS: METRONIDAZOLE / NSS 500 MG in PREMIXED NSS 100 ML IV SCH ×3 (03:56→21:13)
[2016-12-17] MEDS: HYDROmorphone HCL 0.5MG/ML 50 ML CASSETTE IV PRN ×2 (07:12→15:02)
--- NOTE | 2016-12-17 07:41 | Surgery Progress Note ---
Surgery Progress Note Date of Service Dec 17, 2016. Subjective Post OP Day: 2 + complaints (pain better), + ambulating (poorly), + diet, No bowel movement, No nausea, No vomiting Objective Vital Signs: Date Time Temp Pulse Resp B/P (MAP) Pulse Ox O2 Delivery O2 Flow Rate FiO2 12/17/16 07:23 36.9 96 14 142/88 (106) 99 Nasal Cannula 12/17/16 03:56 37.1 104 16 145/92 (109) 100 Nasal Cannula 3.0 12/16/16 23:30 Nasal Cannula 2.0 12/16/16 23:00 37.3 107 16 140/81 (100) 95 Nasal Cannula 2.0 12/16/16 19:27 36.8 111 18 152/92 (112) 98 Nasal Cannula 2.0 12/16/16 15:36 36.9 107 18 120/87 (98) 95 Nasal Cannula 2.0 12/16/16 15:15 Nasal Cannula 2.0 12/16/16 11:14 36.7 94 16 131/89 (103) 97 Nasal Cannula 2.0 Physical Exam: nasogastric drainage (gastric) General Appearance: WD/WN, no apparent distress Head: normocephalic, atraumatic Neck: supple, trachea midline Respiratory/Chest: lungs clear Cardiovascular: regular rate, rhythm Abdomen: normal bowel sounds, non distended, soft, + tenderness Incision(s): clean, dry, intact Extremities: non-tender, no pedal edema Laboratory Results: Results Past 24 Hours Test 12/17/16 04:44 Range/Units Assessment & Plan s/p ex lap with resection ruptured duodenal diverticulum -OOB -sips -remove ngt -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
[2016-12-17] MEDS: LACTATED RINGER'S 1000ML 1,000 ML IV SCH ×3 (07:45→23:43)
[2016-12-17 08:43] LABS: BASO % 0.2 %; BASO ABS # 0.02 K/uL (0-0.2); COMPLETE YES; EOS % 0.7 %; HEMATOCRIT 31.3 % (42-52); IG% 0.5 %; LYMPH ABS # 1.39 K/uL (1.2-3.4); MEAN CELL VOLUME 87.9 fL (80-100); MEAN CORPUSCULAR HEMOGLOBIN 29.2 pg (25-34); MEAN CORPUSCULAR HGB CONC 33.2 g/dl (32-36); MEAN PLATELET VOLUME 8.5 fL (7.4-10.4); MONO % 11.8 %; NEUT % 73.8 %; PLATELET COUNT 226 K/uL (130-400); RED BLOOD COUNT 3.56 M/uL (4.7-6.1); WHITE BLOOD COUNT 10.68 K/uL (4.8-10.8)
[2016-12-17] MEDS: FLUTICASONE HFA 110MCG INHALER INH SCH ×2 (09:14→21:13)
[2016-12-17] MEDS: PANTOprazole INJ 40 MG in SYRINGE 0 ML IV SCH ×2 (09:14→21:14)
[2016-12-17 09:18] LABS: CALCIUM 8.8 mg/dl (8.5-10.1); CREATININE 0.95 mg/dl (0.60-1.40)
[2016-12-17] MEDS: CIPROFLOXACIN / D5W 400 MG in PREMIXED IN D5W 200 ML IV SCH ×2 (12:25→23:42)
[2016-12-17] MEDS: SODIUM CHLORIDE 0.9% 1000ML 1,000 ML IV SCH (17:47)
[2016-12-18 01:32] VITALS: BP 134/88; PULSE 86; O2SAT 100
[2016-12-18 04:10] VITALS: BP 155/99; PULSE 95; TEMP 36.8; O2SAT 98
[2016-12-18] MEDS: METRONIDAZOLE / NSS 500 MG in PREMIXED NSS 100 ML IV SCH ×3 (04:13→20:29)
[2016-12-18 06:53] VITALS: BP 142/95; PULSE 90; TEMP 36.7; O2SAT 99
[2016-12-18] MEDS: HYDROmorphone HCL 0.5MG/ML 50 ML CASSETTE IV PRN ×4 (07:09→23:58)
[2016-12-18 07:27] LABS: BASO % 0.2 %; BASO ABS # 0.02 K/uL (0-0.2); COMPLETE YES; EOS % 4.3 %; HEMATOCRIT 31.6 % (42-52); IG% 0.5 %; LYMPH % 14.2 %; LYMPH ABS # 1.22 K/uL (1.2-3.4); MEAN CELL VOLUME 89.8 fL (80-100); MEAN CORPUSCULAR HGB CONC 32.3 g/dl (32-36); MEAN PLATELET VOLUME 8.4 fL (7.4-10.4); MONO % 13.2 %; NEUT % 67.6 %; PLATELET COUNT 253 K/uL (130-400); RED BLOOD COUNT 3.52 M/uL (4.7-6.1); WHITE BLOOD COUNT 8.59 K/uL (4.8-10.8)
[2016-12-18 07:53] LABS: CALCIUM 8.8 mg/dl (8.5-10.1); CREATININE 0.78 mg/dl (0.60-1.40); POTASSIUM 4.1 mmol/L (3.5-5.1)
[2016-12-18] MEDS: LACTATED RINGER'S 1000ML 1,000 ML IV SCH ×2 (08:24→16:31)
[2016-12-18] MEDS: PANTOprazole INJ 40 MG in SYRINGE 0 ML IV SCH ×2 (09:36→21:51)
[2016-12-18] MEDS: FLUTICASONE HFA 110MCG INHALER INH SCH ×2 (09:36→20:29)
[2016-12-18] MEDS: CIPROFLOXACIN / D5W 400 MG in PREMIXED IN D5W 200 ML IV SCH (11:56)
[2016-12-18 14:59] VITALS: BP 161/102; PULSE 97; TEMP 37.1; O2SAT 98
--- NOTE | 2016-12-18 15:37 | Surgery Progress Note ---
Surgery Progress Note Date of Service Dec 18, 2016. Subjective Post OP Day: 3 + feeling well, + ambulating (to hallway and bathroom), + SOB (chronic asthma), + pain controlled (with FOUNDER CHAIRMAN AND CHIEF CREATIVE OFFICER), No bowel movement, No flatus, No nausea, No vomiting + hungry Objective Vital Signs: Date Time Temp Pulse Resp B/P (MAP) Pulse Ox O2 Delivery O2 Flow Rate FiO2 12/18/16 14:59 37.1 97 14 161/102 (121) 98 Nasal Cannula 2.0 12/18/16 07:30 Nasal Cannula 2.0 12/18/16 06:53 36.7 90 18 142/95 (111) 99 Nasal Cannula 2.0 12/18/16 04:10 36.8 95 18 155/99 (117) 98 Nasal Cannula 2.0 12/18/16 01:32 86 16 134/88 (103) 100 Nasal Cannula 2.0 12/17/16 23:49 Nasal Cannula 2.0 12/17/16 23:40 36.9 95 18 146/102 (117) 96 Nasal Cannula 3.0 12/17/16 22:26 151/95 (113) 12/17/16 19:18 36.9 95 18 154/103 (120) 99 Nasal Cannula 3.0 Physical Exam: TOÑA drainage (serosanguineous) General Appearance: WD/WN, no apparent distress Head: normocephalic, atraumatic Neck: trachea midline Respiratory/Chest: no respiratory distress, no accessory muscle use Abdomen: soft, + distended, + tenderness (moderate tenderness near midline incision, appropriate post op) Incision(s): clean, dry, intact, no erythema, no drainage Laboratory Results: Results Past 24 Hours Test 12/18/16 06:53 Range/Units White Blood Count 8.59 4.8-10.8 K/uL Red Blood Count 3.52 4.7-6.1 M/uL Hemoglobin 10.2 14.0-18.0 g/dL Hematocrit 31.6 42-52 % Mean Corpuscular Volume 89.8 80-100 fL Mean Corpuscular Hemoglobin 29.0 25-34 pg Mean Corpuscular Hemoglobin Concent 32.3 32-36 g/dl Platelet Count 253 130-400 K/uL Mean Platelet Volume 8.4 7.4-10.4 fL Neutrophils (%) (Auto) 67.6 % Lymphocytes (%) (Auto) 14.2 % Monocytes (%) (Auto) 13.2 % Eosinophils (%) (Auto) 4.3 % Basophils (%) (Auto) 0.2 % Neutrophils # (Auto) 5.81 1.4-6.5 K/uL Lymphocytes # (Auto) 1.22 1.2-3.4 K/uL Monocytes # (Auto) 1.13 0.11-0.59 K/uL Eosinophils # (Auto) 0.37 0-0.5 K/uL Basophils # (Auto) 0.02 0-0.2 K/uL RDW Standard Deviation 45.4 36.4-46.3 fL RDW Coefficient of Variation 13.7 11.5-14.5 % Immature Granulocyte % (Auto) 0.5 % Immature Granulocyte # (Auto) 0.04 0.00-0.02 K/uL Sodium Level 139 136-145 mmol/L Potassium Level 4.1 3.5-5.1 mmol/L Chloride Level 103 98-107 mmol/L Carbon Dioxide Level 31 21-32 mmol/L Anion Gap 5.0 3-11 mmol/L Blood Urea Nitrogen 12 7-18 mg/dl Creatinine 0.78 0.60-1.40 mg/dl Est Creatinine Clear Calc Drug Dose 127.5 ml/min Estimated GFR () 116.1 Estimated GFR (Non- 100.2 BUN/Creatinine Ratio 16.0 10-20 Random Glucose 92 70-99 mg/dl Calcium Level 8.8 8.5-10.1 mg/dl Assessment & Plan POD # 3 s/p ex lap, repair of ruptured duodenal diverticulum -vitals stable - no leukocytosis - moderate abdominal pain, controlled with FOUNDER CHAIRMAN AND CHIEF CREATIVE OFFICER - no flatus or bowel movement - +appetite Plan: Continue Dilaudid FOUND[employer] CHAIRMAN AND CHIEF CREATIVE OFFICER as needed for pain Continue IV fluids Continue IV antibiotics Start clear liquids Encourage OOB to chair and ambulation Dr. Olivarez has seen and examined patient, agrees with above
--- NOTE | 2016-12-18 15:52 | Discharge Instructions ---
Discharge Instructions Date of Service Dec 18, 2016. Admission Reason for Admission: Duodenal Perforation Discharge Discharge Diagnosis / Problem: same Discharge Goals Goal(s): Decrease discomfort, Improve function Activity Recommendations Activity Limitations: as noted below No heavy lifting over 10 pounds for at least 6 weeks No strenuous activity until cleared by surgeon walking and light activity is encouraged to prevent blood clots forming No submerging incision underwater for 2 weeks or until healed (no bathing, swimming, or hot tubs) No driving while taking narcotic pain medication or until you are pain free . Instructions / Follow-Up Instructions / Follow-Up You may shower You do not need to cover incision with dressing unless there is drainage Your surgical princess will be removed in office Please call office at [phone] to make a follow-up appointment with Dr. Olivarez in 10 days Current Hospital Diet Patient's current hospital diet: Clear Liquid Diet Discharge Diet Recommended Diet: Low Fiber Diet Procedures Procedures Performed: Exploratory Laparotomy with resection perforated duodenal diverticulum Pending Studies Studies pending at discharge: no Medical Emergencies . Who to Call and When: Medical Emergencies: If at any time you feel your situation is an emergency, please call 911 immediately. . Non-Emergent Contact Non-Emergency issues call your: Primary Care Provider, Surgeon Call Non-Emergent contact if: you have a fever, temperature is above 101.5, your pain is not controlled, your pain is worsening, your pain is unusual for you, wound has increased drainage, wound has increased redness, wound has increased pain . "Provider Documentation" section prepared by Theresa Bonilla. . VTE Core Measure Inpt VTE Proph given/why not?: SCD's [place] Drug Monitoring Program Search Results: patient reviewed within database, no issues identified
[2016-12-18] MEDS: SODIUM CHLORIDE 0.9% 1000ML 1,000 ML IV SCH (16:31)
[2016-12-18] MEDS ORDERED: OXYC-57 PO (17:38)
[2016-12-18 23:04] VITALS: BP 162/106; PULSE 86; TEMP 36.7; O2SAT 97
[2016-12-19 03:53] VITALS: BP 143/87; PULSE 87; TEMP 36.8; O2SAT 98
[2016-12-19] MEDS: METRONIDAZOLE / NSS 500 MG in PREMIXED NSS 100 ML IV SCH ×3 (03:58→20:01)
[2016-12-19] MEDS: HYDROmorphone HCL 0.5MG/ML 50 ML CASSETTE IV PRN ×3 (06:51→23:01)
[2016-12-19 07:05] VITALS: BP 149/99; PULSE 85; TEMP 36.9; O2SAT 97
[2016-12-19] MEDS: LACTATED RINGER'S 1000ML 1,000 ML IV SCH ×2 (07:58)
[2016-12-19] MEDS: FLUTICASONE HFA 110MCG INHALER INH SCH ×2 (08:53→20:47)
[2016-12-19] MEDS ORDERED: OXYCODONE HCL IR 5 MG TAB (IMMEDIATE RELEASE) PO PRN (09:15)
[2016-12-19] MEDS ORDERED: ACETAMINOPHEN 325 MG TAB PO PRN (09:15)
[2016-12-19] MEDS: PANTOprazole INJ 40 MG in SYRINGE 0 ML IV SCH ×2 (09:25→20:47)
--- NOTE | 2016-12-19 09:28 | Surgery Progress Note ---
Surgery Progress Note Date of Service Dec 19, 2016. Subjective POD#4 ex-lap, stapled diverticulectomy for perforated duodenal diverticulitis. Doing well, pain improved, ambulating, urinating, tolerating clears though gets full quickly. Objective Vital Signs: Date Time Temp Pulse Resp B/P (MAP) Pulse Ox O2 Delivery O2 Flow Rate FiO2 12/19/16 07:05 36.9 85 16 149/99 (116) 97 Room Air 12/19/16 03:53 36.8 87 16 143/87 (105) 98 Room Air 12/19/16 00:12 Nasal Cannula 2.0 12/18/16 23:04 36.7 86 18 162/106 (124) 97 Nasal Cannula 2.0 12/18/16 15:45 Nasal Cannula 2.0 12/18/16 14:59 37.1 97 14 161/102 (121) 98 Nasal Cannula 2.0 Physical Exam: TOÑA drainage (Serosanguinous) General Appearance: WD/WN, no apparent distress Head: normocephalic, atraumatic Neck: supple, no adenopathy, thyroid normal, no JVD, no carotid bruits, trachea midline Respiratory/Chest: chest non-tender, lungs clear, normal breath sounds, no respiratory distress, no accessory muscle use Cardiovascular: regular rate, rhythm, no edema, no gallop, no JVD, no murmur Abdomen: normal bowel sounds, non distended, soft, no organomegaly, no pulsatile mass, + tenderness (appropriate) Incision(s): clean, dry, intact, no erythema, no drainage Extremities: normal range of motion, non-tender, normal inspection, no pedal edema, no calf tenderness, normal capillary refill, pelvis stable Assessment & Plan POD#4 ex lap and staple duodenal diverticulectomy, doing well, pain improved Plan: advance to full liquids oxycodone prn pain, wean PROCESS CONTROLLER d/c ofirmev, add oral tylenol tko iv fluids ambulate, IS continue drain D. Rigoberto Gregg, DO
[2016-12-19] MEDS: CIPROFLOXACIN / D5W 400 MG in PREMIXED IN D5W 200 ML IV SCH ×2 (12:49)
[2016-12-19 14:52] VITALS: BP 155/97; PULSE 98; TEMP 37; O2SAT 93
[2016-12-19] MEDS: ONDANSETRON INJ 2 MG/ML 2 ML VIAL IV PRN ×2 (16:05→22:17)
[2016-12-19] MEDS: OXYCODONE HCL IR 5 MG TAB (IMMEDIATE RELEASE) PO PRN ×2 (16:06→22:17)
[2016-12-19] MEDS: SODIUM CHLORIDE 0.9% 1000ML 1,000 ML IV SCH (17:47)
[2016-12-19 20:12] VITALS: BP 146/95; PULSE 89; TEMP 37; O2SAT 94
[2016-12-19 23:25] VITALS: BP 152/91; PULSE 90; TEMP 37; O2SAT 91
[2016-12-20] MEDS: CIPROFLOXACIN / D5W 400 MG in PREMIXED IN D5W 200 ML IV SCH ×2 (00:18→12:07)
[2016-12-20 03:16] VITALS: BP 134/85; PULSE 86; TEMP 36.9; O2SAT 92
[2016-12-20] MEDS: METRONIDAZOLE / NSS 500 MG in PREMIXED NSS 100 ML IV SCH ×3 (04:34→20:12)
[2016-12-20] MEDS: OXYCODONE HCL IR 5 MG TAB (IMMEDIATE RELEASE) PO PRN ×3 (04:35→20:37)
[2016-12-20] MEDS: ONDANSETRON INJ 2 MG/ML 2 ML VIAL IV PRN (04:35)
[2016-12-20] MEDS: HYDROmorphone HCL 0.5MG/ML 50 ML CASSETTE IV PRN (07:04)
[2016-12-20 07:09] VITALS: BP 121/96; PULSE 91; TEMP 37.1; O2SAT 92
[2016-12-20] MEDS: FLUTICASONE HFA 110MCG INHALER INH SCH ×2 (08:38→20:34)
[2016-12-20] MEDS: PANTOprazole INJ 40 MG in SYRINGE 0 ML IV SCH (08:39)
[2016-12-20] MEDS ORDERED: HYDROmorphone INJ 1 MG/ML SYR IV PRN (11:30)
[2016-12-20] MEDS ORDERED: KETOROLAC TROMETHAMINE 15 MG/ML VIAL IV PRN (11:30)
[2016-12-20] MEDS ORDERED: HYDROmorphone INJ 0.5 MG/0.5 ML SYR IV PRN (11:30)
--- NOTE | 2016-12-20 11:32 | Surgery Progress Note ---
Surgery Progress Note Date of Service Dec 20, 2016. Subjective POD#5 ex-lap, stapled diverticulectomy for perforated duodenal diverticulitis. Doing well, pain improved, ambulating, urinating, tolerating full liquids though still gets full quickly. No bm yet. complains of headache, history of similar headaches. Objective Vital Signs: Date Time Temp Pulse Resp B/P (MAP) Pulse Ox O2 Delivery O2 Flow Rate FiO2 12/20/16 07:35 Room Air 12/20/16 07:09 37.1 91 16 121/96 (104) 92 Room Air 12/20/16 03:16 36.9 86 16 134/85 (101) 92 Room Air 12/20/16 00:21 Room Air 12/19/16 23:25 37.0 90 18 152/91 (111) 91 Room Air 12/19/16 20:12 37.0 89 18 146/95 (112) 94 Room Air 12/19/16 15:50 Room Air 12/19/16 14:52 37.0 98 18 155/97 (116) 93 Room Air Physical Exam: TOÑA drainage (serosanguinous drainage) General Appearance: WD/WN, no apparent distress Head: normocephalic, atraumatic Neck: supple, no adenopathy, thyroid normal, no JVD, no carotid bruits, trachea midline Respiratory/Chest: chest non-tender, lungs clear, normal breath sounds, no respiratory distress, no accessory muscle use Cardiovascular: regular rate, rhythm, no edema, no gallop, no JVD, no murmur Abdomen: normal bowel sounds, non tender, non distended, soft, no organomegaly , no pulsatile mass Incision(s): clean, dry, intact, no erythema, no drainage Extremities: normal range of motion, non-tender, normal inspection, no pedal edema, no calf tenderness, normal capillary refill, pelvis stable Assessment & Plan POD#5 ex lap and staple duodenal diverticulectomy, doing well, pain improved Plan: advance to low residue diet 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 Rigoberto Gregg, DO
[2016-12-20] MEDS ORDERED: KETOROLAC TROMETHAMINE 15 MG/ML VIAL ONE (14:27)
[2016-12-20] MEDS ORDERED: KETOROLAC TROMETHAMINE 15 MG/ML VIAL IV ONE (14:30)
[2016-12-20] MEDS ORDERED: NURSING VERBAL MED ORDER ONE (14:30)
[2016-12-20 14:58] VITALS: BP 142/90; PULSE 91; TEMP 36.8; O2SAT 92
[2016-12-20] MEDS: PANTOprazole SOD 40 MG TAB PO SCH (20:35)
[2016-12-20 23:55] VITALS: BP 143/78; PULSE 93; TEMP 36.9; O2SAT 96
[2016-12-21] MEDS: OXYCODONE HCL IR 5 MG TAB (IMMEDIATE RELEASE) PO PRN (00:47)
[2016-12-21] MEDS: CIPROFLOXACIN / D5W 400 MG in PREMIXED IN D5W 200 ML IV SCH (00:48)
[2016-12-21] MEDS: METRONIDAZOLE / NSS 500 MG in PREMIXED NSS 100 ML IV SCH (03:48)
[2016-12-21 06:54] VITALS: BP 132/83; PULSE 87; TEMP 36.9; O2SAT 96
[2016-12-21] MEDS: FLUTICASONE HFA 110MCG INHALER INH SCH (08:57)
[2016-12-21] MEDS: PANTOprazole SOD 40 MG TAB PO SCH (08:57)
--- NOTE | 2016-12-21 11:05 | Surgery Progress Note ---
Surgery Progress Note Date of Service Dec 21, 2016. Subjective Post OP Day: POD # 6 s/p ex lap , duodenal diverticulectomy + feeling well, + ambulating, + flatus, + pain controlled, + diet (tolerating low fiber diet), No chest pain, No SOB, No bowel movement, No nausea, No vomiting Objective Vital Signs: Date Time Temp Pulse Resp B/P (MAP) Pulse Ox O2 Delivery O2 Flow Rate FiO2 12/21/16 07:30 Room Air 12/21/16 06:54 36.9 87 18 132/83 (99) 96 Room Air 12/21/16 00:45 Room Air 12/20/16 23:55 36.9 93 18 143/78 (99) 96 Room Air 12/20/16 15:20 Room Air 12/20/16 14:58 36.8 91 18 142/90 (107) 92 Room Air Physical Exam: TOÑA drainage (serosanguienous) General Appearance: WD/WN, no apparent distress Head: normocephalic, atraumatic Neck: trachea midline Respiratory/Chest: no respiratory distress, no accessory muscle use Abdomen: soft, no organomegaly, no pulsatile mass, + tenderness (appropriate post op, no rebound, guarding, or peritonitis) Incision(s): clean, dry, intact, no erythema, no drainage, findings (princess present and intact) Assessment & Plan POD # 6 s/p ex lap, repair of ruptured duodenal diverticulum - vitals stable - minimal abdominal pain, controlled with oral Percocet - + flatus Plan: Continue PO Oxycodone as needed for pain, breakthrough IV Dilaudid Continue IV antibiotics Continue low fiber diet Encourage OOB to chair and ambulation [employer] Worker consult, patient request Re-evaluated with Dr. Olivarez at 12:00 pm Patient doing well Plan for discharge today Will d/c TOÑA drain Stop IV antibiotics discharge instructions discussed Follow-up in [address] for staple removal [address] Olivarez has seen patient and agrees with above
[2016-12-21] MEDS ORDERED: KETOROLAC TROMETHAMINE 15 MG/ML VIAL IV ONE (11:30)
[2016-12-21] MEDS ORDERED: PANT1TAB48 PO (13:01)
[2016-12-21 13:03] VITALS: BP 132/83; PULSE 87; TEMP 36.9; O2SAT 96
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
== END 2016-12-21 14:15 | disposition home or self-care (01) | DRG 326 ==
LOC: C.EDB 02:14 → C.MSW 07:42 → ENRESERV 09:33
PROVIDERS: ADMIT Surgery; ATTEND Surgery
PROC: 0DB90ZZ Excision of Duodenum, Open Approach (ICD-10-PCS; principal; 2016-12-15 05:01)
PROC: 0DU907Z Supplement Duodenum with Autologous Tissue Substitute, Open Approach (ICD-10-PCS; principal; 2016-12-15 05:01)
DX: K57.10 Diverticulosis of small intestine without perforation or abscess without bleeding (principal); K63.1 Perforation of intestine (nontraumatic); J45.909 Unspecified asthma, uncomplicated; I10 Essential (primary) hypertension; Z88.0 Allergy status to penicillin